=== PATIENT | male | born 1960 | race Caucasian/White ===

== ENCOUNTER → 2018-04-19 | Outpatient (CLI) | payer OTHER ==
--- NOTE | 2018-04-19 15:33 | PCVCIMAG ---
APPROVED REPORT Laterality: Bilateral Indications Bruit Doppler Spectral Velocity Analysis PSV / EDVPSV / EDV ECA (R) 129 / 19 cm/sECA (L) 95 / 13 cm/s dICA (R) 93 / 46 cm/sdICA (L) 83 / 30 cm/s Tamiko (R) 94 / 40 cm/smICA (L) 86 / 36 cm/s pICA (R) 77 / 23 cm/spICA (L) 81 / 28 cm/s Bulb (R) 71 / 18 cm/sBulb (L) 80 / 21 cm/s dCCA (R) 89 / 23 cm/sdCCA (L) 89 / 24 cm/s mCCA (R) 104 / 24 cm/smCCA (L) 102 / 23 cm/s Vert (R) 52 / 15 cm/sVert (L) 35 / 11 cm/s ICA/CCA 1.06 ICA/CCA 0.97 Findings The right carotid bulb has minimal plaque. The right proximal internal carotid artery shows no significant stenosis. The right common carotid artery shows no significant stenosis. The right external carotid artery shows no significant stenosis. The left carotid bulb has minimal plaque. The left proximal internal carotid artery shows no significant stenosis. The left common carotid artery shows no significant stenosis. The left external carotid artery shows no significant stenosis. Conclusion 1. Minimal bilateral plaquing without significant stenosis 2. Antegrade vertebral flow
--- NOTE | 2018-04-23 17:14 | PCVCIMAG ---
APPROVED REPORT Study performed: 04/19/2018 14:57:24 EXAM: Comprehensive 2D, Doppler, and color-flow Echocardiogram Patient Location: Echo lab Status: routine BSA: 2.28 HR: 67 bpmBP: 116/84 mmHg Rhythm: NSR Other Information Study Quality: Good Risk Factors: Cardiac Risk Factors: Hyperlipidemia Indications CAD Chest Pain Elevated CA Score 2D Dimensions IVSd: 9.84 (7-11mm)LVOT Diam: 21.00 (18-24mm) LVDd: 46.73 mm PWd: 8.81 (7-11mm)Ascending Ao: 29.05 (22-36mm) LVDs: 34.15 (25-40mm) Left Atrium: 37.59 (27-40mm) Aortic Root: 32.65 mm LV Single Plane 4CH: 64.16 % LV Single Plane 2CH: 60.50 % Biplane EF: 62.9 % Volumes Left Atrial Volume (Systole) Single Plane 4CH: 52.75 mLSingle Plane 2CH: 46.98 mL LA ESV Index: 23.00 mL/m2 Aortic Valve AoV Peak Stephan.: 1.31 m/s AO Peak Gr.: 6.85 mmHgLVOT Max P.85 mmHg LVOT Max V: 0.84 m/s SEE Vmax: 2.13 cm2 Mitral Valve E/A Ratio: 1.5 MV Decel. Time: 217.03 ms MV E Max Stephan.: 0.69 m/s MV A Stephan.: 0.47 m/s IVRT: 72.66 ms Pulmonary Valve PV Peak Stephan.: 0.85 m/sPV Peak Gr.: 2.92 mmHg DE End Vmax: 0.88 m/s Pulmonary Vein P Vein S: 0.51 m/sP Vein A: 0.27 m/s P Vein D: 0.55 m/sP Vein A Dur.: 76.1 msec P Vein S/D Ratio: 0.93 Tricuspid Valve TR Peak Stephan.: 2.27 m/sRAP Estimate: 7.00 mmHg TR Peak Gr.: 20.55 mmHg PA Pressure: 30.00 mmHg Left Ventricle The left ventricle is normal size. There is normal LV segmental wall motion. There is normal left ventricular wall thickness. Left ventricular systolic function is normal. The left ventricular ejection fraction is within the normal range. LVEF is 60-65%. Grade II - pseudonormal filling dynamics. Right Ventricle Right ventricle is mildly dilated. The right ventricular systolic function is normal. Atria The left atrium size is normal. Right atrium is dilated. Aortic Valve The aortic valve is normal in structure. No aortic regurgitation is present. There is no aortic valvular stenosis. Mitral Valve The mitral valve is normal in structure. Mild mitral regurgitation. No evidence of mitral valve stenosis. Tricuspid Valve The tricuspid valve is normal in structure. Mild tricuspid regurgitation. Pulmonary artery pressure is 30 mmHg. Pulmonic Valve The pulmonary valve is normal in structure. Trace pulmonic regurgitation. Great Vessels The aortic root is normal in size. IVC is mildly dilated and collapses >50% with inspiration. Pericardium There is no pericardial effusion. <Conclusion> The left ventricle is normal size. LVEF is 60-65%. Grade II - pseudonormal filling dynamics. Right ventricle is mildly dilated. The left atrium size is normal. Right atrium is dilated. Right atrium is dilated. There is no aortic valvular stenosis. Mild mitral regurgitation. Mild tricuspid regurgitation. Pulmonary artery pressure is 30 mmHg. The aortic root is normal in size. There is no pericardial effusion.
--- NOTE | 2018-04-24 10:30 | PCVCIMAG ---
APPROVED REPORT Patient Location: Echo lab Room #: Stress Nurse: Alayna Sloan RN TREADMILL STRESS TEST INDICATION: Chest Pain, Hyperlipidemia, Elevated CA Score, Family HX CAD The patient exercised according to the DIANA protocol for 15:01 min:sec achieving a work level of Max METS: 17.50. The resting heart rate of 71 bpm iglesia to a maximal heart rate of 179 bpm. This value represents 109% of the maximal age-predicted heart rate. The resting blood pressure of 116/84 mmHg iglesia to a maximum blood pressure of 160/80 mmHg. The exercise was stopped due to fatigue and maximal effort. Conclusion #1 patient stopped secondary to fatigue and shortness of breath no reproduction of chest pain or angina. #2 no diagnostic EKG changes consistent with ischemia no significant ectopy noted #3 excellent exercise tolerance was an appropriate hemodynamic response N: Negative treadmill stress test for ischemia exhibiting no significant ectopy be an excellent exercise tolerance.
== END | disposition home or self-care (01) ==
LOC: PCVCIMAG 15:22
PROVIDERS: ATTEND Internal Medicine Cardiovascular Disease
DX: I08.1 Rheumatic disorders of both mitral and tricuspid valves (principal); R01.1 Cardiac murmur, unspecified; R09.89 Other specified symptoms and signs involving the circulatory and respiratory systems; R07.9 Chest pain, unspecified; R93.1 Abnormal findings on diagnostic imaging of heart and coronary circulation; Z82.49 Family history of ischemic heart disease and other diseases of the circulatory system
CPT/HCPCS: 93017; 93306; 93880